=== PATIENT | male | born 1945 | race Caucasian/White ===

== ENCOUNTER 2016-10-18 11:31 | Emergency (ER) | payer MEDICARE, BC ==
[~2016-10-18] VITALS: Ht 177.8 cm; Wt 90.0 kg
[2016-10-18 12:10] VITALS: BP 170/73; PULSE 97; RESP 16; TEMP 97.5; O2SAT 97
[2016-10-18] MEDS ORDERED: CITA10TA4 PO (13:48)
[2016-10-18] MEDS ORDERED: SIMV5TAB3 PO (13:48)
[2016-10-18] MEDS ORDERED: ALPR.5 PO (13:48)
[2016-10-18] MEDS ORDERED: ALPRAZolam 0.5 MG TAB PO ONE (14:00)
--- NOTE | 2016-10-18 14:06 | PD ---
HPI Chief Complaint: Medication Refill Request Time Seen by Provider: 13:41 Travel History International Travel<30 days: No Contact w/Intl Traveler<30days: No Traveled to known affect area: No History of Present Illness HPI Patient is a 71-year-old male who comes in requesting a prescription for Xanax. He says [place] is from out of town and he lost his prescription last week. He says he has not taken any since last . He says he takes them 4 times a day. He says helps with vertigo and tinnitus for him. He is worried that without it he wanted a stroke or a heart attack. Currently he is not having any chest pain or shortness of breath. He is not experiencing any weakness. He says he called his primary doctor who said that she cannot call in the prescription for him. He says that he was advised to come to the emergency department. He has a refill for the prescription that he can get October 22 Past Medical History Depression: Yes High Cholesterol: Yes Diminished Hearing: No Tetanus Vaccination: Unknown Social History Alcohol Use: No Tobacco Use: No Substance Use: No Allergies-Medications (Allergen,Severity, Reaction): Coded Allergies: No Known Allergies (Unverified , 10/18/16) Reported Meds & Prescriptions Reported Meds & Active Scripts Active Reported Xanax (Alprazolam) 0.5 Mg Tab 0.5 Mg PO Q6H PRN Simvastatin 5 Mg Tab Unknown Dose PO DAILY Citalopram (Citalopram Hydrobromide) 10 Mg Tab Unknown Dose PO DAILY Review of Systems General / Constitutional: No: Fever, Chills HENT: No: Headaches, Lightheadedness Cardiovascular: No: Chest Pain or Discomfort Respiratory: No: Shortness of Breath Gastrointestinal: No: Nausea, Vomiting Genitourinary: No: Dysuria Musculoskeletal: No: Myalgias, Weakness Neurologic: No: Weakness, Dizziness Physical Exam Narrative GENERAL: Awake and alert in no acute distress. No tremulousness. SKIN: Warm and dry. HEAD: Atraumatic. Normocephalic. EYES: Pupils equal and round. No scleral icterus. ENT: No nasal bleeding or discharge. Mucous membranes pink and moist. NECK: Trachea midline. No JVD. CARDIOVASCULAR: Regular rate and rhythm. No murmur appreciated. RESPIRATORY: No accessory muscle use. Clear to auscultation. Breath sounds equal bilaterally. NEUROLOGICAL: Awake and alert. No obvious cranial nerve deficits. Motor grossly within normal limits. Normal speech. Data Data Last Documented VS Vital Signs Date Time Temp Pulse Resp B/P Pulse Ox O2 Delivery O2 Flow Rate FiO2 10/18/16 12:10 97.5 97 16 170/73 97 Orders Alprazolam (Xanax) (10/18/16 14:00) MDM Medical Decision Making Medical Screen Exam Complete: Yes Emergency Medical Condition: Yes Differential Diagnosis Encounter for refill of prescription, anxiety, drug abuse Narrative Course Patient is a 71-year-old male comes in requesting a prescription for Xanax. On exam he has no signs of withdrawal. I explained to the patient that we do not write prescriptions for Xanax from the emergency department. He was offered Vistaril or Benadryl. Given a dose of Xanax here. And stated she was worried about having a heart attack or a stroke due to lack of Xanax. I explained that I could give him blood pressure medication if he was concerned about these things and that would in fact help to prevent a heart attack or stroke. However he does not want blood pressure medication at this time. Patient advised follow-up with his doctor. Advised to return to the ED as needed for any worsening symptoms. Diagnosis Primary Impression: Medication refill Patient Instructions: Anxiety (ED), General Instructions Additional Instructions: Follow up with your doctor. You can take Benadryl as needed for your symptoms. Return to the ED as needed for any worsening symptoms. Disposition: 01 DISCHARGE HOME Condition: Stable Aurora Tse MD Oct 18, 2016 14:05
== END 2016-10-18 14:10 | disposition home or self-care (01) ==
LOC: PHED 11:31 → PHEFT 14:10
DX: R42 Dizziness and giddiness (principal); H93.19 Tinnitus, unspecified ear; E78.00 Pure hypercholesterolemia, unspecified; Z76.0 Encounter for issue of repeat prescription; Z86.59 Personal history of other mental and behavioral disorders; Z86.69 Personal history of other diseases of the nervous system and sense organs
CPT/HCPCS: 99283